=== PATIENT | female | born 1985 | race Hispanic/Latino ===

== ENCOUNTER 2019-08-15 19:14 | Emergency (ER) | payer BC, SELFPAY ==
--- NOTE | 2019-08-15 20:22 | RAD ---
RIGHT ANKLE THREE VIEWS: 08/15/19 HISTORY: Lateral ankle pain. COMPARISON: None. FINDINGS: Mild lateral soft tissue swelling. No acute displaced fracture or malalignment. No widening of the an kle mortise. There are small anterior pretibial soft tissue phleboliths. Moderate dorsal and plantar calcaneal spurs. IMPRESSION: 1. Lateral ankle sprain without acute fracture. 2. 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 POS: HOME
== END 2019-08-15 20:30 | disposition home or self-care (01) ==
LOC: ERS 19:14
DX: S93.401A Sprain of unspecified ligament of right ankle, initial encounter (principal); E11.9 Type 2 diabetes mellitus without complications; F17.210 Nicotine dependence, cigarettes, uncomplicated; X50.1XXA Overexertion from prolonged static or awkward postures, initial encounter

== ENCOUNTER 2019-11-07 15:36 | Emergency (ER) | payer OTHER ==
--- NOTE | 2019-11-07 16:13 | RAD ---
EXAM: Single view of the chest HISTORY: Cough and chills COMPARISON: None FINDINGS: Single view of the chest shows a normal sized cardiomediastinal silhouette. Questionable ar eas of peripheral opacity in both lungs. The bones are unremarkable IMPRESSION: Possible multifocal infiltrates
[2019-11-08 13:26] LABS: SARS-CoV-2 MS2 Positive; SARS-CoV-2 N Gene Positive; SARS-CoV-2 S Gene Positive; SARS-CoV-2 by NAA DETECTED (NotDetected); SARS-CoV-2 orf1ab Positive
== END 2019-11-07 16:30 ==
LOC: ERS 15:36
DX: U07.1 COVID-19 (principal); E11.9 Type 2 diabetes mellitus without complications; F17.210 Nicotine dependence, cigarettes, uncomplicated; Z79.899 Other long term (current) drug therapy
CPT/HCPCS: 71045; 87635; 99284; U0003

== ENCOUNTER 2021-04-18 22:19 | Emergency (ER) | payer SELFPAY | END 2021-04-19 01:11 | disposition home or self-care (01) | LOC: ERS 22:19 | DX: L03.113 Cellulitis of right upper limb (principal); E11.9 Type 2 diabetes mellitus without complications; F17.210 Nicotine dependence, cigarettes, uncomplicated | CPT/HCPCS: 36416; 99283 ==

== ENCOUNTER 2021-04-20 13:26 | Emergency (ER) | payer SELFPAY ==
[2021-04-20] MEDS ORDERED: Clindamycin 150 MG CAP ONE ×2 (15:43→15:44)
[2021-04-20] MEDS ORDERED: Ibuprofen 800 MG TAB ONE (15:43)
[2021-04-20 16:27] LABS: #Eosinphils 0.1 thou/uL (0.0-0.7); #Lymphocytes 2.6 thou/uL (1.20-3.40); #Monocytes 0.6 thou/uL (0.11-0.59); #Neutrophils 11.5 thou/uL (1.40-6.50); %Basophils 0.3 % (0.0-1.0); %Eosinophils 0.4 % (0.0-10.0); %Lymphocytes 17.5 % (21.0-51.0); %Monocytes 3.9 % (0.0-10.0); Hemoglobin 10.9 g/dL (12.0-16.0); Mean Corpuscular HGB CONC 34.1 g/dL (32.0-36.0); Mean Corpuscular Hemoglobin 31.9 pg (27.0-31.0); Mean Corpuscular Volume 93.7 fL (78.0-98.0); Mean Platelet Volume 6.9 fL (7.4-10.4); Platelet Count 303 thou/uL (130-400); RBC Distribution Width 11.3 % (11.5-14.5); Red Blood Cell (RBC) Count 3.43 mill/uL (4.20-5.40); White Blood Cell (WBC) Count 14.7 thou/uL (4.8-10.8)
[2021-04-20 16:44] LABS: ALT (SGPT) 10 U/L (8-55); AST (SGOT) 10 U/L (5-34); Albumin 3.5 g/dL (3.5-5.0); Alkaline Phosphatase 87 U/L (40-110); Anion Gap 16 mmol/L (10-20); BUN (Urea Nitrogen) 10 mg/dL (7.0-18.7); Bilirubin, Total 0.4 mg/dL (0.2-1.2); Calc. Creatinine Clearance 0 mL/min (70-130); Calcium 9.2 mg/dL (7.8-10.44); Carbon Dioxide 23 mmol/L (22-29); Chloride 98 mmol/L (98-107); Globulin 4.5 g/dL (2.4-3.5); Glucose 361 mg/dL (70-105); Potassium 3.7 mmol/L (3.5-5.1); Sodium 133 mmol/L (136-145)
== END 2021-04-20 17:44 | disposition home or self-care (01) ==
LOC: ERS 13:26
DX: L03.113 Cellulitis of right upper limb (principal); E11.65 Type 2 diabetes mellitus with hyperglycemia; F17.210 Nicotine dependence, cigarettes, uncomplicated; Z79.899 Other long term (current) drug therapy
CPT/HCPCS: 36415; 80053; 83605; 85025